=== PATIENT | female | born 1985 | race African-American/Black ===

== ENCOUNTER 2017-02-11 02:45 | Inpatient (IN) | payer OTHER ==
[2017-02-11] MEDS ORDERED: SODIUM CHLORIDE 500 ML IV SCH ×2 (03:05→04:05)
[2017-02-11] MEDS ORDERED: NIFEdipine 10 MG CAPSULE (FP) PO ONE (05:00)
[2017-02-11] MEDS: BETAMET ACET/BETAMET NA PH 30 MG/5 ML VIAL IM SCH (05:15)
[2017-02-11] MEDS: NIFEdipine 10 MG CAPSULE (FP) PO PRN ×2 (05:30→06:00)
[2017-02-11 05:31] LABS: URINE APPEARANCE CLEAR; URINE BILIRUBIN NEGATIVE (NEGATIVE); URINE BLOOD NEGATIVE (NEGATIVE); URINE COLOR YELLOW; URINE GLUCOSE (UA) NEGATIVE (NEGATIVE); URINE KETONE 2+ (NEGATIVE); URINE LEUK ESTERASE NEGATIVE (NEGATIVE); URINE NITRITE NEGATIVE (NEGATIVE); URINE UROBILINOGEN 2.0 E.U/dl E.U./dl (0.2-1.0)
[2017-02-11 05:34] LABS: URINE PROTEIN 1+ (NEGATIVE)
[2017-02-11 05:35] LABS: URINE MUCUS FEW; URINE RBC <1 /hpf (0-3); URINE WBC 5 /hpf (3-5)
[2017-02-11] MEDS ORDERED: AMPICILLIN - 100 ML IVPB ONE (06:15)
[2017-02-11 06:28] VITALS: BMI 34.0
--- NOTE | 2017-02-11 06:34 | HP ---
Past Medical History - Primary Care Physician PCP:: Earline Choudhary - Admission Chief Complaint: 31 yrs , 34.4 weeks previous c/section x3, GDM diet control, , presented with UC q3-7 min , c/o pain for 3days .. more intense since midnight . Response to IV hydration , followed by 3 doses of Procardia 10 mg q 30min , UC still q 6-7 min less intense but bothersome, hence she is admitted for MGSO4 therapy tocolysis & betamethasone.. she has h/o fall on 01/09 she was seen in L&D. no c/o bleeding or leaking or sexual contact .Drinking less po fluids History of Present Illness: care at [address] [place] [address] ..last visit was on 12/30/16 in the clinic . last Us on 02/03/17 with MFM was on 02/03/17 33.3 weeks, 64%tile growth (2255gm), Bpp8/8, AFI13.07, Vx, Post, placenta. . h/o NT screen neg, Modified Sequential neg .. h/o GDM , diet controlled . 1 hr GT 177, 3 hr GTT 96,189, 186, 178.. Quantiferon Pos, Chest Xray neg (01/02/17). Work Up : A Pos, Hbsag neg, Rpr nr, , Rubella pos, Varicella immune , Hgb AC , spouse HGB electrophoresiis wasnot done h/o anemia rx po iron & pnv h/o pap 09/04/16 ASCUS , HpV neg History Source: Patient, Medical Record Limitations to Obtaining History: No Limitations - Past Medical History FACILITIES DIRECTOR: No: Migraine, Seizure, Syncope Cardiovascular: No: HTN, Murmur Pulmonary: Yes: Other (c/o cold symptoms nasl congestion, other kids at home had). No: Asthma Gastrointestinal: Yes: Constipation Renal/: No: UTI ...: 7 ...Para: 3 ...Term: 3 ...: 0 ...Spon : 1 ...Induced : 2 ...Multiple Gestation: 0 ... Weeks Gestation by Dates: 34.4 (by sonogram.pt did not know LMP ) ...EDC by Sono: 03/21/17 (by 13.2 weeks sono isassigned edc) Additional OB History: 07/21/08 primary c/section 6'4" / 38 weeks distress [facility]. 09/09/10 repeat c/section 38 weeks 6'7' [facility]. 06/22/14 repeat c/ section 37.4 weeks 6'14" Heme/Onc: Yes: Anemia Infectious Disease: No: HIV, STD's Psych: No: Addictions, Anxiety, Bipolar, Depression Endocrine: Yes: Other (GDM diet controlled) - Past Surgical History Past Surgical History: Yes: (07/24, 08/25, 06/29) Hx Myomectomy: No Hx Transabdominal Cerclage: No - Smoking History Smoking history: Never smoked Have you smoked in the past 12 months: No Aproximately how many cigarettes per day: 0 - Alcohol/Substance Use Hx Alcohol Use: No History of Substance Use: reports: None Home Medications - Allergies Allergies/Adverse Reactions: Allergies Allergy/AdvReac Type Severity Reaction Status Date / Time No Known Allergies Allergy Verified 07/29/16 21:13 - Home Medications Home Medications: Ambulatory Orders Vitamins (Sjr) - 1 tab PO DAILY 01/09/17 Physical Exam - Maternity Vital Signs: Vital Signs Temperature 98.2 F 02/11/17 06:00 Pulse Rate 95 H 02/11/17 06:00 Respiratory Rate 22 02/11/17 06:00 Blood Pressure 114/69 02/11/17 06:00 O2 Sat by Pulse Oximetry (%) Constitutional: Yes: Well Nourished, Moderate Distress Eyes: Yes: WNL HENT: Yes: WNL, Normocephalic, Nasal Congestion. No: Pharyngeal Erythema Neck: Yes: WNL Cardiovascular: Yes: WNL, Regular Rate and Rhythm Lungs: Clear to auscultation Breast(s): Yes: WNL - Abdominal Exam/OB Fundal Height: 34 Number of Fetuses: Single Presentation: Vertex Contractions: Yes Regularity: Regular (6-7 min) Intensity: Mod/Strong Monitor Mode: External Heart Rate (range): 140-150 Heart Rate Location: [facility] Category: I Accelerations: Uniform Decelerations: None - Vaginal Exam/OB Vaginal Bleediing: No Speculum Exam: No Dilatation (cm): Ft Effacement (%): 50 Amniotic Membrane Status: Intact Presentation: Vertex/Position (cervix well applied on PP exam at 5.10 am & at 6.15am same findings) Station: -2 - Physical Exam Musculoskeletal: Yes: WNL Extremities: Yes: WNL. No: Calf Tenderness Edema: No Integumentary: Yes: Incision (old pfannensteil scar) Deep Tendon Reflex Grade: Normal +2 Psychiatric: Yes: WNL, Alert, Oriented - Labs Lab Results: Laboratory Tests 02/11/17 02/11/17 04:40 05:08 POC Glucometer 80 Urine pH 6.0 Urine Protein 1+ H Urine Glucose (UA) Negative Urine Ketones 2+ H Urine Blood Negative Urine Nitrite Negative Urine Bilirubin Negative Urine Urobilinogen 2.0 e.u/dl H Ur Leukocyte Esterase Negative Laboratory Tests 02/11/17 02/11/17 02/11/17 06:25 06:25 06:25 WBC 12.4 H D Hgb 11.8 Hct 33.7 Plt Count 239 Neutrophils % 75.1 D Lymphocytes % 16.7 D Monocytes % 7.1 INR 1.05 PTT (Actin FS) 28.5 Sodium Potassium Chloride Carbon Dioxide BUN Creatinine Random Glucose Calcium Total Bilirubin AST ALT Blood Type A POSITIVE 02/11/17 06:25 WBC Hgb Hct Plt Count Neutrophils % Lymphocytes % Monocytes % INR PTT (Actin FS) Sodium 140 Potassium 3.6 Chloride 108 H Carbon Dioxide 19 L D BUN 4 L D Creatinine 0.5 L D Random Glucose 71 L Calcium 8.7 Total Bilirubin 1.3 H D AST 16 ALT 15 D Blood Type Problem List - Problems (1) with 34 completed weeks gestation Code(s): Z3A.34 - 34 WEEKS GESTATION OF (2) labor Code(s): O60.00 - LABOR WITHOUT DELIVERY, UNSPECIFIED TRIMESTER Qualifiers: labor trimester: third trimester (3) Gestational diabetes, diet controlled Code(s): O24.410 - GESTATIONAL DIABETES MELLITUS IN , DIET CONTROLLED Qualifiers: Trimester: third trimester Qualified Code(s): O24.410 - Gestational diabetes mellitus in , diet controlled Assessment/Plan 31 yrs , 34.4 weeks, previous c/sx3, labor non responsive to iv hydration( N, saline ( 500 ml/hr f/b 250 ml /hr & Procardia therapy ( 10 mg po at 5.00am, 5.30 am, 6.00am ) Plan MGSO4 tccolysis( started at 6.30 am )loading dose 4 gm /hr f/b 2gm/hr until UC stops follow protocol betamethasone ( 12.5 mg im given at 5.15 am) , to be repeated after 24 hrs .. Iv Ampicillin prophylaxis for GBS DVT prophylaxix TEDs & SCD . if no response will do repeat c/sect pt requests for BTl, she signed the papers for BTL today
[2017-02-11] MEDS: MAGNESIUM 4GM/H20 - 100 ML IVPB SCH (06:45)
[2017-02-11] MEDS: MAGNESIUM SULFATE 20GM/500ML - 500 ML IVPB SCH ×2 (07:15→17:14)
[2017-02-11] MEDS: SODIUM CHLORIDE 1,000 ML IV SCH ×2 (07:15→17:14)
[2017-02-11 07:25] LABS: BASOPHIL 0.2 % (0-2.0); EOSINOPHIL 0.9 % (0-4.5); MCH 29.5 pg (25.7-33.7); MEAN CELL VOLUME 84.3 fl (80-96); NEUTROPHILS 75.1 % (42.8-82.8); PLATELET COUNT 239 K/MM3 (134-434); RDW 13.6 % (11.6-15.6); WHITE BLOOD COUNT 12.4 K/mm3 (4.0-10.0)
[2017-02-11 07:50] LABS: INR 1.05 (0.82-1.09); PROTHROMBIN TIME (PATIENT) 11.6 SEC (9.98-11.88)
[2017-02-11 07:52] LABS: ACTIVATED PTT 28.5 SECONDS (26.9-34.4)
[2017-02-11 08:04] LABS: ALBUMIN 2.6 g/dl (3.4-5.0); ANION GAP 13 (8-16); CALCIUM 8.7 mg/dL (8.5-10.1); CO2 19 mmol/L (21-32); CREATININE 0.5 mg/dL (0.55-1.02); GLUCOSE,RANDOM 71 mg/dL (74-106); SGOT/AST 16 U/L (15-37); SGPT/ALT 15 U/L (12-78)
[2017-02-11 08:05] LABS: ALK PHOS 123 U/L (45-117); BILIRUBIN,TOTAL 1.3 mg/dL (0.2-1.0); TOT PROT 6.8 g/dl (6.4-8.2)
[2017-02-11 09:49] LABS: HIV 1 & 2 AB NEGATIVE; HIV 1 AGp24 NEGATIVE
[2017-02-11] MEDS: AMPICILLIN - 100 ML IVPB SCH ×5 (10:00→22:50)
[2017-02-12] MEDS: SODIUM CHLORIDE 1,000 ML IV SCH (02:00)
--- NOTE | 2017-02-12 04:26 | PN ---
Progress Note (short form) - Note Progress Note: Pt on mgso4 for pt cx. Resting and not feeling ctx, level at a 4.7. Good u/o Cat 1 tracing
[2017-02-12] MEDS: BETAMET ACET/BETAMET NA PH 30 MG/5 ML VIAL IM SCH (05:50)
[2017-02-12] MEDS: AMPICILLIN - 100 ML IVPB SCH (06:00)
[2017-02-12] MEDS: MAGNESIUM SULFATE 20GM/500ML - 500 ML IVPB SCH (10:18)
[2017-02-12] MEDS: MAGNESIUM 4GM/H20 - 100 ML IVPB SCH (10:18)
[2017-02-12 10:24] VITALS: TEMP 98.1
--- NOTE | 2017-02-12 10:47 | PN ---
Ante-Partal Exam - Subjective Subjective: no c/o pain . Vital Signs: Vital Signs Temperature 98.1 F 02/12/17 10:00 Pulse Rate 94 H 02/12/17 10:00 Respiratory Rate 18 02/12/17 10:00 Blood Pressure 113/66 02/12/17 10:00 O2 Sat by Pulse Oximetry (%) Bleeding: No Headache: No Visual changes: No Right upper quadrant pain: No Pain (scale 1-10): 0 - Contractions Contractions: No Monitor Mode: External - Exam during Labor Heart Rate: 140 Variability: Moderate Heart Rate Location: [facility] Category: I Monitor Accelerations: Present Monitor Decelerations: None Exam: Vaginal (not done since she has no UC) Amniotic Membrane Status: Intact Presentation: Vertex - Assessment/Plan Assessment/Plan: pt is 34.5 weeks gestation ,s/p 3 C/Sections , PTL s/p [id number] for 24 hrs for tocolysis ., s/p Betamethasone 12.5 mg x2 doses s/p prophylactic Iv Ampicillin pt is pain free no UC for last 6 hrs,, except sometimes [place] [facility] UC. s/p GDM , BGM post breakfast 1 hr 150 mg ( pt ate breakfast from outside) .. 02/11/17 sono : 34.4/7 wks , byron 13.83cm, bpp 8/8, Vx, Post Placenta Plan d/c IVFluids, d/c IVAmpicillin discharge today pt counselled for diabetic diet, BGM Monitoring , plenty PO Fluids discharge today
[2017-02-12 11:07] VITALS: BP 115/68; PULSE 89
--- NOTE | 2017-02-12 11:15 | DS ---
Physical Exam-CERTIFIED ORTHOPTIST Vital Signs: Vital Signs Temperature 98.1 F 02/12/17 10:00 Pulse Rate 94 H 02/12/17 10:00 Respiratory Rate 18 02/12/17 10:00 Blood Pressure 113/66 02/12/17 10:00 O2 Sat by Pulse Oximetry (%) Constitutional: Yes: Well Nourished, No Distress Eyes: Yes: WNL HENT: Yes: WNL, Nasal Congestion Neck: Yes: WNL Cardiovascular: Yes: WNL Respiratory: Yes: WNL Gastrointestinal: Yes: WNL Renal/: Yes: WNL External Genitalia: Yes: Normal Breast(s): Yes: WNL Extremities: Yes: WNL. No: Calf Tenderness Edema: No Integumentary: Yes: Incision (old pfannensteil scar) Neurological: Yes: WNL, Alert, Oriented ...Motor Strength: WNL Psychiatric: Yes: WNL Labs: CBC, BMP 02/11/17 06:25 02/11/17 06:25 Delivery, Single - [place] Feeding Plan Initial Plan: Elected not to breastfeed exclusively throughout hospitalization Remarks - Remarks Remarks: 31 yrs , 40.4 weeks, , previous c/setion x3 , GDM diet controlled admitted on 02/11/17 & discharged on 02/12/17 . pt was given as an outpatient, iv hydration, followed by 3 doses of procardia 10 mg q 30 mn, uc were persistent 7 strong hence she was admitted Placed on MgSO4 4 gm loading dose followed by 2 gm/hr for 12 hr followed by 1gm/hr x12 hrs , . She responded well to MgSO4 therapy tocolysis. GDM was monitored by BGM, & [address] ADA Iv Ampicillin prophylactic was given. She was given betamethasone IM x 2 dose was given . she is discharged on 02/12/17 in stable condition, with instructions. Discharge Summary Reason For Visit: ADMIT-PRE TERM LABOR Current Active Problems Gestational diabetes, diet controlled (Acute) with 34 completed weeks gestation (Acute) labor (Acute) Condition: Stable - Instructions Diet, Activity, Other Instructions: take rest at home plenty , 8-10 glasses of water take diabetic diet as recommended by teacher asst check BGM 4 times as instructed , fasting & 2 Hrs after breakfast, lunch & dinner . continue your vit & Iron pills keep pnc appointment on 02/17/17 Referrals: Earline Choudhary MD [Staff Physician] - Disposition: HOME - Home Medications Comprehensive Discharge Medication List: Ambulatory Orders Vitamins (Sjr) - 1 tab PO DAILY 01/09/17
== END 2017-02-12 11:44 | disposition home or self-care (01) | DRG 563 ==
LOC: JDEL 02:45 → JLDR 06:00
PROVIDERS: ADMIT Obstetrics & Gynecology; ATTEND Obstetrics & Gynecology
PROC: 3E033GC Introduction of Other Therapeutic Substance into Peripheral Vein, Percutaneous Approach (ICD-10-PCS; principal; 2017-02-11)
DX: O60.03 Preterm labor without delivery, third trimester (principal); O24.420 Gestational diabetes mellitus in childbirth, diet controlled; Z3A.34 34 weeks gestation of pregnancy
CPT/HCPCS: 36415; 80053; 81003; 81015; 83735; 85025; 85610; 85730; 86593; 86850; 86900; 86901; 87086; 87389; 96372

== ENCOUNTER 2017-03-01 18:10 | Inpatient (IN) | payer OTHER ==
[~2017-03-01 18:10] MED LIST: LACTATED RINGERS SOLUTION 500 ML IV ONE
[2017-03-01] MEDS ORDERED: LACTATED RINGERS SOLUTION 1,000 ML IV SCH (19:10)
[2017-03-01] MEDS ORDERED: ELECTROLYTE-148 SOLN 500 ML IV ONE ×3 (22:15→23:43)
[2017-03-01] MEDS ORDERED: CITRIC ACID/SODIUM CITRATE 30 ML UNIT-DOSE CUP PO ONE ×2 (22:30→23:43)
[2017-03-01 22:39] LABS: BASOPHIL 0.2 % (0-2.0); MCH 30.5 pg (25.7-33.7); MCHC 35.9 g/dl (32.0-36.0); MEAN CELL VOLUME 84.9 fl (80-96); MEAN PLT VOLUME 7.6 fl (7.5-11.1); NEUTROPHILS 68.3 % (42.8-82.8); PLATELET COUNT 254 K/MM3 (134-434); RDW 14.2 % (11.6-15.6); WHITE BLOOD COUNT 9.5 K/mm3 (4.0-10.0)
[2017-03-01 22:50] LABS: INR 1.01 (0.82-1.09); PROTHROMBIN TIME (PATIENT) 11.1 SEC (9.98-11.88)
[2017-03-01 22:53] LABS: ACTIVATED PTT 27.2 SECONDS (26.9-34.4)
[2017-03-01 23:01] VITALS: BMI 34.0
[2017-03-01 23:11] LABS: CALCIUM 8.2 mg/dL (8.5-10.1); COCKROFT - GAULT 156.5105; CREATININE 0.7 mg/dL (0.55-1.02)
[2017-03-01] MEDS ORDERED: ONDANSETRON 4 MG/2 ML VIAL IVPB PRN (23:36)
[2017-03-01] MEDS ORDERED: METHYLERGONOVINE MALEATE 0.2 MG/1 ML AMP IM PRN (23:43)
[2017-03-01] MEDS ORDERED: IBUPROFEN 600 MG TABLET (FP) PO PRN (23:43)
[2017-03-01] MEDS ORDERED: ELECTROLYTE-148 SOLN 1,000 ML IV SCH (23:45)
[2017-03-02] MEDS: OXYTOCIN 20 UNITS in 0.9% NS 1,000 ML IV SCH ×2 (03:00→13:30)
[2017-03-02] MEDS: IBUPROFEN 800 MG/8 ML IJ IVPB PRN ×2 (03:00→09:03)
[2017-03-02 08:19] LABS: BASOPHIL 0.3 % (0-2.0); EOSINOPHIL 0.8 % (0-4.5); MCH 29.4 pg (25.7-33.7); MEAN CELL VOLUME 86.4 fl (80-96); MEAN PLT VOLUME 7.9 fl (7.5-11.1); NEUTROPHILS 70.4 % (42.8-82.8); PLATELET COUNT 183 K/MM3 (134-434); RDW 14.1 % (11.6-15.6); WHITE BLOOD COUNT 10.3 K/mm3 (4.0-10.0)
--- NOTE | 2017-03-02 08:32 | PN ---
Progress Note (short form) - Note Progress Note: Anesthesia POD#1 S/P Repeat under spinal Patient sitting in the bed having break fast. No N/V, no pain,moving extremities well. A/P No complications to anesthesia seen. Duyen Trent MD.
[2017-03-02] MEDS: IBUPROFEN 600 MG TABLET (FP) PO PRN (19:41)
[2017-03-02] MEDS: SIMETHICONE 80 MG TAB.CHEW (FP) PO PRN (19:41)
[2017-03-02] MEDS: ACETAMINOPHEN 325 MG TABLET (FP) PO PRN (19:41)
[2017-03-02] MEDS ORDERED: BISACODYL 10 MG SUPP.RECT RC PRN (23:43)
[2017-03-03] MEDS: ACETAMINOPHEN 325 MG TABLET (FP) PO PRN ×3 (04:52→20:22)
[2017-03-03] MEDS: IBUPROFEN 600 MG TABLET (FP) PO PRN ×3 (04:53→20:23)
[2017-03-03] MEDS: SIMETHICONE 80 MG TAB.CHEW (FP) PO PRN ×3 (04:53→20:22)
--- NOTE | 2017-03-03 12:53 | PN ---
Progress Note (short form) - Note Progress Note: s/p repeat c/s doing well, no c/o voids ok, no excess vaginal bleeding CBC, BMP 03/02/17 06:00 03/01/17 22:15 Last Vital Signs Temp Pulse Resp BP Pulse Ox 98.3 F 85 20 95/66 98 03/03/17 07:30 03/03/17 07:30 03/03/17 07:30 03/03/17 07:30 03/02/17 02:15 abdomen soft, no distension, no cva incision dry, clean no calf tenderness impression doing well, pod1 ambulate, pain management advance diet
[2017-03-04] MEDS: ACETAMINOPHEN 325 MG TABLET (FP) PO PRN ×3 (02:57→21:31)
[2017-03-04] MEDS: SIMETHICONE 80 MG TAB.CHEW (FP) PO PRN ×3 (02:57→21:31)
[2017-03-04] MEDS: IBUPROFEN 600 MG TABLET (FP) PO PRN ×3 (02:58→21:31)
--- NOTE | 2017-03-04 08:41 | PN ---
Post Progress Note - Subjective Subjective: c/o pain variable 0-10 . voiding without difficulty Post Day: 2 Type of Delivery: Repeat C/S Vital Signs: Vital Signs Temperature 98.9 F 03/03/17 21:29 Pulse Rate 99 H 03/03/17 21:29 Respiratory Rate 20 03/03/17 21:29 Blood Pressure 116/68 03/03/17 21:29 O2 Sat by Pulse Oximetry (%) 98 03/02/17 02:15 Breast Exam: Yes: Soft. No: Engorged Uterus: Yes: Fundus Firm, Fundus below umbilicus, Non-tender Incision: Yes: [place] intact. No: Redness, Oozing Abdomen/GI: Yes: Abdomen soft, Passing flatus, Tolerating PO (diet). No: Abdominal Distention, Tender Lochia: Yes: Rubra Lochia, amount: Moderate Extremities: Yes: Calves non-tender Perineum: Yes: Intact Activity: Ambulating - Labs Labs: CBC WBC 10.3 K/mm3 (4.0-10.0) H 03/02/17 06:00 RBC 3.06 M/mm3 (3.60-5.2) L D 03/02/17 06:00 Hgb 9.0 GM/dL (10.7-15.3) L D 03/02/17 06:00 Hct 26.4 % (32.4-45.2) L D 03/02/17 06:00 MCV 86.4 fl (80-96) 03/02/17 06:00 MCHC 34.0 g/dl (32.0-36.0) 03/02/17 06:00 RDW 14.1 % (11.6-15.6) 03/02/17 06:00 Plt Count 183 K/MM3 (134-434) D 03/02/17 06:00 MPV 7.9 fl (7.5-11.1) 03/02/17 06:00 Neutrophils % 70.4 % (42.8-82.8) 03/02/17 06:00 Lymphocytes % 20.6 % (8-40) 03/02/17 06:00 Monocytes % 7.9 % (3.8-10.2) 03/02/17 06:00 Eosinophils % 0.8 % (0-4.5) 03/02/17 06:00 Basophils % 0.3 % (0-2.0) 03/02/17 06:00 Assessment/Plan post op anemia , stable plan ct po care
[2017-03-04 08:48] LABS: BASOPHIL 0.2 % (0-2.0); EOSINOPHIL 3.3 % (0-4.5); MCH 30.4 pg (25.7-33.7); MCHC 35.2 g/dl (32.0-36.0); MEAN CELL VOLUME 86.1 fl (80-96); MEAN PLT VOLUME 7.7 fl (7.5-11.1); NEUTROPHILS 62.4 % (42.8-82.8); PLATELET COUNT 194 K/MM3 (134-434); RDW 14.5 % (11.6-15.6); WHITE BLOOD COUNT 9.9 K/mm3 (4.0-10.0)
--- NOTE | 2017-03-05 06:31 | PN ---
Post Progress Note Post Day: 3 Type of Delivery: Repeat C/S Vital Signs: Vital Signs Temperature 98.9 F 03/04/17 22:00 Pulse Rate 98 H 03/04/17 22:00 Respiratory Rate 18 03/04/17 22:00 Blood Pressure 108/73 03/04/17 22:00 O2 Sat by Pulse Oximetry (%) 98 03/02/17 02:15 Breast Exam: Yes: Soft Uterus: Yes: Fundus Firm Incision: Yes: [place]til[place] intact Abdomen/GI: Yes: Abdomen soft Lochia: Yes: Rubra Lochia, amount: Small Extremities: Yes: Calves non-tender Perineum: Yes: Intact Activity: Ambulating - Labs Labs: CBC WBC 9.9 K/mm3 (4.0-10.0) 03/04/17 07:45 RBC 2.88 M/mm3 (3.60-5.2) L 03/04/17 07:45 Hgb 8.7 GM/dL (10.7-15.3) L 03/04/17 07:45 Hct 24.8 % (32.4-45.2) L 03/04/17 07:45 MCV 86.1 fl (80-96) 03/04/17 07:45 MCHC 35.2 g/dl (32.0-36.0) 03/04/17 07:45 RDW 14.5 % (11.6-15.6) 03/04/17 07:45 Plt Count 194 K/MM3 (134-434) 03/04/17 07:45 MPV 7.7 fl (7.5-11.1) 03/04/17 07:45 Neutrophils % 62.4 % (42.8-82.8) 03/04/17 07:45 Lymphocytes % 25.5 % (8-40) D 03/04/17 07:45 Monocytes % 8.6 % (3.8-10.2) 03/04/17 07:45 Eosinophils % 3.3 % (0-4.5) D 03/04/17 07:45 Basophils % 0.2 % (0-2.0) 03/04/17 07:45 Assessment/Plan oob dc home today
[2017-03-05] MEDS: SIMETHICONE 80 MG TAB.CHEW (FP) PO PRN (07:38)
[2017-03-05] MEDS: ACETAMINOPHEN 325 MG TABLET (FP) PO PRN (07:38)
[2017-03-05] MEDS: IBUPROFEN 600 MG TABLET (FP) PO PRN (07:39)
[2017-03-05 08:42] VITALS: BP 117/70; PULSE 100; TEMP 98.5
--- NOTE | 2017-03-05 09:37 | OP ---
DATE OF OPERATION: PREOPERATIVE DIAGNOSIS: A 31-year-old female at 37+ weeks with prior section who comes in in labor for repeat section. POSTOPERATIVE DIAGNOSIS: A 31-year-old female at 37+ weeks with prior section who comes in in labor for repeat section. PROCEDURE: A repeat section. OPERATING SURGEON: Roshan Francis MD KENNEL ASSISTANT: Christian Scanlon MD COMPLICATIONS: None. ANESTHESIA: Spinal anesthesia DISPOSITION: To recovery room in stable, alert condition. DESCRIPTION OF PROCEDURE: The patient was consented prior to entering the operating suite. Part of the consent was tubal ligation, the patient had signed for. On the operating room table, the patient after proper anesthesia was tested. There was no pain detected. Transverse incision on the lower abdomen Pfannenstiel type was carried down to the level of the fascia. The fascia was then transected to the left and right of midline. The fascia was then teased away from the underlying rectus abdominis muscle. There was noted to be somewhat separation of the diastasis rectus muscle. This was then to gain entry into the uterus. The uterus was then identified. Bladder flap was created, although there was scar tissue. Transverse incision was made. The infant head was at the opening. Vacuum assistance was then performed. Slight fundal pressure helped the infant be delivered. The was then clamped and cut, and the was then handed off to awaiting remote sensing program manager. At this time, the placenta had been removed, and the inferior aspect of the uterus was cleaned with a semiwet lap pad. The uterine incision was then closed in Biosyn suture. There were noted to be adhesions in the right and left pericolic gutters adnexal area. Tubal ligation was not performed. After closing of the muscle with the peritoneum with Biosyn suture, the fascia was then closed with Biosyn suture. Skin sherry were applied. The patient was sent to the recovery room in stable, alert condition. ROSHAN FRANCIS M.D. BRYAN/[id number]
--- NOTE | 2017-03-05 11:49 | PATH ---
Surgical Pathology Report Patient Name: BELEM CELESTIN Med. Rec. #: [id number] /Age/Gender: 1985 (Age: 31) / F Account: [id number] Location: [facility] OBS/SENIOR UNDERWRITER Taken: 03/02/2017 Received: 03/02/2017 Reported: 03/05/2017 Physicians: Hakeem Francis M.D. Specimen(s) Received PLACENTA Clinical History , 37 weeks gestation 3 previous C-sections Gestational diabetic-diet controlled History of asthma Final Diagnosis PLACENTA, DELIVERY: SMALL (360 GRAM) FOCALLY DISRUPTED THIRD TRIMESTER PLACENTA WITH INFARCT, 3 VESSEL UMBILICAL CORD, AND UNREMARKABLE PLACENTAL MEMBRANE. Electronically Signed Stalin Fregoso M.D. Gross Description The specimen is received fresh labeled placenta and is a 360 gram, 16.5 x 13.5 x 2.3 cm. placenta with attached membranes and umbilical cord. The attached membranes are wade, thick, cloudy and insert marginally. The umbilical cord measures 47 cm. in length and averages 1.3 cm. in diameter. The cord inserts at the margin. No true knots or strictures are identified. Cut surface of the umbilical cord reveals 3 vessels. The surface is olvera-blue with minimal fibrin deposition and appropriate caliber vessels. The maternal surface is red-brown with focal defects. Sectioning reveals a 1.8 cm in greatest dimension wade intraparenchymal lesion. The remaining placental parenchyma is red-brown and spongy. Studio Manager sections are submitted in 4 cassettes as follows: 1-membrane rolls and umbilical cord; 2-lesion; 3-4-full thickness sections of placenta. 03/04/2017 [facility]03/04/2017
--- NOTE | 2017-03-16 11:24 | OP ---
DATE OF OPERATION: HISTORY: A 31-year-old female with prior section in labor for repeat section. OPERATING SURGEON: Roshan Francis MD COMPUTER COMPOSITOR: Christian Scanlon MD COMPLICATIONS: None. FINDINGS: Single, live male infant with Apgars 8/9. Normal tubes, ovaries, placenta. DESCRIPTION OF PROCEDURE: The patient was consented prior to entering the operating suite. The patient was put on the table in dorsal supine position, prepped and draped in the usual sterile fashion. A Pfannenstiel skin incision was carried down to the level of the fascia. The fascia was then transected to the left and right of midline. The muscle was then split digitally in the midline after separation of the fascial tissue. A small area of adhesions was then noted. Enough space was made to gain entry into the uterus. Transverse incision was made, and the infant was then delivered atraumatically through the incision. Tubal ligation was not performed secondary to adhesions. At this time, the placenta had been removed. The port was then clamped and culture. The inferior aspect of the uterus was cleaned with semiwet lap pad. At this time, the uterus was closed with a Biosyn suture. The peritoneum with the muscles was then approximated. The fascia was then closed with Biosyn suture. Skin sherry were applied. The patient was sent to the recovery room in stable, alert condition. ROSHAN FRANCIS M.D. [id number]
--- NOTE | 2017-04-28 12:18 | DS ---
DATE OF ADMISSION: DATE OF DISCHARGE: DATE OF DICTATION: 04/21/2017 The patient was seen throughout hospital course post section. No issues or concerns. The patient will be followed up in the office in 2 weeks' time. ROSHAN SIMMONS M.D. BRYAN/[id number]
== END 2017-03-05 11:00 | disposition home or self-care (01) | DRG 540 ==
LOC: JDEL 18:10 → JLDR 22:10 → J3W 03-02 04:03
PROVIDERS: ADMIT Obstetrics & Gynecology; ATTEND Obstetrics & Gynecology
PROC: 10D00Z1 Extraction of Products of Conception, Low, Open Approach (ICD-10-PCS; principal; 2017-03-02)
DX: O34.211 Maternal care for low transverse scar from previous cesarean delivery (principal); N85.8 Other specified noninflammatory disorders of uterus; O99.02 Anemia complicating childbirth; Z3A.37 37 weeks gestation of pregnancy; O24.410 Gestational diabetes mellitus in pregnancy, diet controlled; Z37.0 Single live birth
CPT/HCPCS: 36415; 80048; 85025; 85610; 85730; 86593; 86850; 86900; 86901; 88307-TC

== ENCOUNTER 2017-09-17 22:58 | Emergency (ER) | payer OTHER ==
[2017-09-17 23:10] VITALS: BP 128/82; PULSE 77; TEMP 97.9; BMI 33.8
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
[2017-09-17] MEDS ORDERED: KETOROLAC TROMETHAMINE 10 MG TABLET PO ONE (23:56)
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
[2017-09-18] MEDS ORDERED: KETOROLAC TROMETHAMINE 30 MG/1 ML VIAL IM ONE (01:52)
[2017-09-18] MEDS ORDERED: KETOROLAC TROMETHAMINE 30 MG/1 ML VIAL ONE (02:39)
== END 2017-09-18 03:56 | disposition home or self-care (01) ==
LOC: SUPCPDRO 22:58 → JER 22:58
PROC: 3E0233Z Introduction of Anti-inflammatory into Muscle, Percutaneous Approach (ICD-10-PCS; principal; 2017-09-17)
DX: S13.4XXA Sprain of ligaments of cervical spine, initial encounter (principal); R07.81 Pleurodynia; V49.59XA Passenger injured in collision with other motor vehicles in traffic accident, initial encounter; Y92.414 Local residential or business street as the place of occurrence of the external cause; Y93.89 Activity, other specified; Y99.8 Other external cause status
CPT/HCPCS: 71111-TC; 84703; 99282-25

== ENCOUNTER 2018-12-13 07:34 | Emergency (ER) | payer OTHER ==
[2018-12-13 07:42] VITALS: BP 131/77; PULSE 80; TEMP 98.2; BMI 29.2
[2018-12-13] MEDS ORDERED: CYCLOBENZAPRINE HCL 10 MG TABLET (FP) PO ONE (08:23)
[2018-12-13] MEDS ORDERED: IBUPROFEN 400 MG TABLET (FP) PO ONE ×2 (08:23→08:27)
[2018-12-13] MEDS ORDERED: CYCLOBENZAPRINE HCL 10 MG TABLET (FP) ONE (08:27)
--- NOTE | 2018-12-13 08:29 | PDOC ---
History of Present Illness - General Chief Complaint: Headache Stated Complaint: HEADACHE Time Seen by Provider: 12/13/18 08:03 History Source: Patient Exam Limitations: No Limitations - History of Present Illness Initial Comments: 12/13/18 08:30 Patient is a 33-year-old female with no past medical history who presents to the emergency department today for intermittent headache for one month. Patient states that she notices the pain goes all around her head and feels tight. She states that she notices the pain goes to the sides of her neck. Also admits to occasional photophobia. She states that the headache comes and goes and gradually gets worse over the course of the day. She tried taking Motrin 400 mg with minimal relief of her symptoms. Denies fevers, chills, loss of consciousness, lightheadedness, dizziness, gait instability, nausea, vomiting. Past History - Travel Traveled outside of the country in the last 30 days: No Close contact w/someone who was outside of country & ill: No - Past Medical History Allergies/Adverse Reactions: Allergies Allergy/AdvReac Type Severity Reaction Status Date / Time No Known Allergies Allergy Verified 12/13/18 07:38 Home Medications: Ambulatory Orders Cyclobenzaprine HCl [Flexeril -] 10 mg PO HS #10 tablet 12/13/18 Ibuprofen 800 mg PO TID #30 tablet 12/13/18 Ibuprofen [Advil -] mg PO QID PRN 12/13/18 Asthma: Yes Cancer: No Cardiac Disorders: No COPD: No Diabetes: Yes HTN: No Seizures: No Thyroid Disease: No - Surgical History Cholecystectomy: Yes - Immunization History Immunization Up to Date: Yes - Suicide/Smoking/Psychosocial Hx Smoking History: Never smoked Have you smoked in the past 12 months: No Number of Cigarettes Smoked Daily: 0 Cigars Per Day: 0 Hx Alcohol Use: No Drug/Substance Use Hx: No Substance Use Type: None Hx Substance Use Treatment: No Review of Systems - Review of Systems Able to Perform ROS?: Yes Comments:: 12/13/18 08:26 CONSTITUTIONAL: Absent: fever, chills, diaphoresis, generalized weakness, malaise, loss of appetite HEENT: Absent: rhinorrhea, nasal congestion, throat pain, throat swelling, difficulty swallowing, mouth swelling, ear pain, eye pain, visual Changes CARDIOVASCULAR: Absent: chest pain, loss of consciousness, palpitations, irregular heart rate, peripheral edema RESPIRATORY: Absent: cough, shortness of breath, dyspnea with exertion, orthopnea, wheezing, stridor, hemoptysis GASTROINTESTINAL: Absent: abdominal pain, abdominal distension, nausea, vomiting, diarrhea, constipation, melena, hematochezia GENITOURINARY: Absent: dysuria, frequency, urgency, hesitancy, hematuria, flank pain, genital pain MUSCULOSKELETAL: Absent: myalgia, arthralgia, joint swelling SKIN: Absent: rash, itching, pallor HEMATOLOGIC/IMMUNOLOGIC: Absent: easy bleeding, easy bruising, lymphadenopathy, frequent infections ENDOCRINE: Absent: unexplained weight gain, unexplained weight loss, heat intolerance, cold intolerance NEUROLOGIC: Present: headache Absent: focal weakness or paresthesias, dizziness, unsteady gait, seizure, mental status changes, bladder or bowel incontinence PSYCHIATRIC: Absent: anxiety, depression, suicidal or homicidal ideation, hallucinations. Is the patient limited Beninese proficient: No *Physical Exam - Vital Signs Last Vital Signs Temp Pulse Resp BP Pulse Ox 98.2 F 80 17 131/77 98 12/13/18 07:41 12/13/18 07:41 12/13/18 07:41 12/13/18 07:41 12/13/18 07:41 - Physical Exam Comments: 12/13/18 08:27 GENERAL: Well developed, well nourished. Awake and alert. No acute distress. HEENT: Normocephalic, atraumatic. PERRLA, EOMI. No conjunctival pallor. Sclera are non- icteric. Moist mucous membranes. Oropharynx is clear. NECK: Supple. Full ROM. TTP of the paraspinous muscles of the neck b/l. No JVD. Carotid pulses 2+ and symmetric, without bruits. No thyromegaly. No lymphadenopathy. Negative Brudinzki and kernig signs. CARDIOVASCULAR: Regular rate and rhythm. No murmurs, rubs, or gallops. Distal pulses are 2+ and symmetric. PULMONARY: No evidence of respiratory distress. Lungs clear to auscultation bilaterally. No wheezing, rales or rhonchi. ABDOMINAL: Soft. Non-tender. Non-distended. No rebound or guarding. No organomegaly. Normoactive bowel sounds. MUSCULOSKELETAL Normal range of motion at all joints. No bony deformities or tenderness. No CVA tenderness. EXTREMITIES: No cyanosis. No clubbing. No edema. No calf tenderness. SKIN: Warm and dry. Normal capillary refill. No rashes. No jaundice. NEUROLOGICAL: Alert, awake, appropriate. Cranial nerves 2-12 intact. No deficits to light touch and temperature in face, upper extremities and lower extremities. No motor deficits in the in face, upper extremities and lower extremities. Normoreflexic in the upper and lower extremities. Normal speech. Toes are down- going bilaterally. Gait is normal without ataxia. No dysdyacochokinesia. PSYCHIATRIC: Cooperative. Good eye contact. Appropriate mood and affect. Moderate Sedation - Procedure Monitoring Vital Signs: Procedure Monitoring Vital Signs Temperature 98.2 F 12/13/18 07:41 Pulse Rate 80 12/13/18 07:41 Respiratory Rate 17 12/13/18 07:41 Blood Pressure 131/77 12/13/18 07:41 O2 Sat by Pulse Oximetry (%) 98 12/13/18 07:41 Medical Decision Making - Medical Decision Making 12/13/18 08:40 Patient is a 33-year-old female who presents with 1 month of intermittent headache symptoms. On exam neurologically intact, no gross neurological deficits. negative Brudzinski and Kernig signs. Tenderness to palpation of the paraspinous muscles of the neck bilaterally. VSS, afrebrile. Symptoms are intermittent over the past month and gradually get worse. No red flags in history or physical concerning for subarachnoid hemorrhage at this time. Most likely a tension headache. We'll treat with ibuprofen and Flexeril. Primary care neurology follow-up given. Discharge home I discussed the physical exam findings, ancillary test results and final diagnoses with the patient. I answered all of the patient's questions. The patient was satisfied with the care received and felt comfortable with the discharge plan and treatment plan. The Patient agrees to follow up with the primary care physician/specialist within 24-72 hours. Return precautions were given. *DC/Admit/Observation/Transfer Diagnosis at time of Disposition: Headache Qualifiers: Headache type: tension-type Headache chronicity pattern: acute headache Intractability: not intractable Qualified Code(s): G44.209 - Tension-type headache, unspecified, not intractable - Discharge Dispostion Disposition: HOME Condition at time of disposition: Stable Decision to Admit order: No - Prescriptions Prescriptions: Cyclobenzaprine HCl [Flexeril -] 10 mg PO HS #10 tablet Ibuprofen 800 mg PO TID #30 tablet - Referrals Referrals: Kirt Burris MD [Staff Physician] - Danilo Crabtree DO [Staff Physician] - - Patient Instructions Printed Discharge Instructions: DI for Headache Additional Instructions: You have a headache. Please take Motrin 800 mg every 8 hours for your headache. Do not take more than 3000 mg a day. You may take the Flexeril every 8 hours today. Tomorrow take the Flexeril only at night before bed. Do not drink alcohol or drive after taking this medication as it may make you sleepy. He may do gentle stretching exercises of the neck to help with the pain. A heating pad may help with her pain is well. Please follow up with your primary care doctor. If you try have a referral has been provided. Return to the ER for worsening headache, fever, lightheadedness, loss of consciousness, or if you have any changes in your symptoms. - Post Discharge Activity Forms/Work/School Notes: Back to Work
== END 2018-12-13 08:41 | disposition home or self-care (01) ==
LOC: JERFT 07:34
DX: G44.209 Tension-type headache, unspecified, not intractable (principal)
CPT/HCPCS: 99281-25

== ENCOUNTER 2019-11-26 23:24 | Emergency (ER) | payer OTHER ==
[2019-11-26 23:52] VITALS: BP 126/85; PULSE 79; TEMP 98
--- NOTE | 2019-11-27 01:24 | PDOC ---
Attending Attestation - Resident Resident Name: Torrey Shah - ED Attending Attestation I have performed the following: I have examined & evaluated the patient, The case was reviewed & discussed with the resident, I agree w/resident's findings & plan - HPI HPI: 11/27/19 02:53 Pt comes with back pain. Point tenderness at a paraspinal location that radiates up and down the paraspinal muscles. She states that her sometimes massages her knot. She takes nothing for the pain. 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 She has no dysuria and no rashes and no N/V/D and no fever. She has no other complaints. Pt has no neurologic deficits. - Physicial Exam PE: 11/27/19 02:56 Normal exam. Pt is afebrile She has a stiff back and spasm. She has pain when trying to sit forward in the stretcher. Pt has an obese abdomen. Pt has normal heart and lungs and no flank pain. She has normal neuro exam - Medical Decision Making 11/27/19 03:01 Pt has normal labs; she has no anemia Pt will get a T spine XRAY 11/27/19 04:04 Pt has loss of lumbar lordosis. 11/27/19 04:04 Consistent with muscle spasm. Pt will be discharged
[2019-11-27] MEDS ORDERED: LIDOCAINE 5% TOPICAL PATCH TP ONE (01:34)
[2019-11-27] MEDS ORDERED: ACETAMINOPHEN 325 MG TABLET (FP) PO ONE (01:34)
[2019-11-27 01:35] VITALS: BMI 34.0
[2019-11-27] MEDS ORDERED: ACETAMINOPHEN 325 MG TABLET (FP) ONE (01:35)
--- NOTE | 2019-11-27 01:35 | PDOC ---
History of Present Illness - General Chief Complaint: Back Pain Stated Complaint: BACK PAIN Time Seen by Provider: 11/27/19 01:12 History Source: Patient, Family (Daughter at bedside) Exam Limitations: No Limitations - History of Present Illness Initial Comments: HPI: 34 y/o female presenting to [facility] ER complaining of right lower back pain that started before Ovidio. Pain started to worsen over the past two days. It is made worse with any movement of the back. Manageable if she stays still. Denies trauma to the area, recent heavy lifting, fevers, chills, dysuria, hematuria, or increased urinary frequency. Denies urinary retention, bowel incontinence, saddle anesthesia, or weakness in legs. Has attempted relief with direct massage and Tylenol PM. No OTC medications used during the day. 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 Denies prescription medications. Surgical Hx: - Review of Systems: In addition to that documented in the HPI above, the additional ROS was obtained : Constitutional- Denies fevers or chills ENMT- Denies sore throat CV- Denies chest pain Resp- Denies SOB GI- Denies abdominal pain, vomiting or diarrhea - Denies dysuria, hematuria, or urinary frequency Physical Examination: Vital signs and nursing notes reviewed. Constitutional- Well-developed, well-nourished adult female in no acute distress but mild obvious discomfort. Found semi-fowlers on hospital bed. Answered all questions appropriately and completely. Head- Normocephalic. No obvious external signs of trauma. Neck- Supple, trachea is midline. Cardiovascular / Chest- Regular rate and regular rhythm. No murmur, rubs, clicks , or gallops. Peripheral pulses- radial pulses full. No pretibial edema. Respiratory- Breathing unlabored. Equal chest rise and fall. Clear to auscultation bilaterally. No stridor, no wheezing, no rhonchi. Gastrointestinal- abdomen is soft, non-tender, non-distended. Neuro- Alert and oriented x4. Moving all four extremities spontaneously. No facial asymmetry. No slurred speech. Sensation to all four extremities intact. Lower extremity: proximal and distal strength 5/5. Plantar flexion and dorsiflexion 5/5. No nuchal rigidity. MSK- Diffuse right sided paraspinal tenderness. No overlying skin changes. No signs of trauma. No midline thoracic or lumbar spinal tenderness. No step off. Skin- Warm, dry, and intact. - No R or L CVA tenderness. Psych- Affect- appropriate. Mood- normal. Speech was non-labored, non- pressured. MDM: 34 y/o female presenting with atraumatic right lower back pain without sciatica. Afebrile. Vitals unremarkable for hypotension or tachycardia. Physical exam as described above. No red flags identified on history or physical for Cauda Equina. Suspect MSK strain. Will obtain UA to eval for pyelonephritis (extremely low suspicion), UPreg, CBC, and BMP. Ordered Acetaminophen and Lidoderm patch for symptom relief. Reviewed laboratory data. No clinically significant derangement. UPreg negative. Continue to suspect MSK strain. Will D/C the pt with topical NSAID and Robaxin. Discussed laboratory results with pt. Answered all questions. Provided return precautions. pt expressed verbal understanding and agreement with plan to discharge home with outpatient follow up. Provided copies of todays results. Torrey Shah M.D., PGY2 Emergency Medicine Resident Past History - Past Medical History Allergies/Adverse Reactions: Allergies Allergy/AdvReac Type Severity Reaction Status Date / Time No Known Allergies Allergy Verified 11/27/19 01:04 Home Medications: Ambulatory Orders Cyclobenzaprine HCl [Flexeril -] 10 mg PO HS #10 tablet 12/13/18 Ibuprofen 800 mg PO TID #30 tablet 12/13/18 Ibuprofen [Advil -] mg PO QID PRN 12/13/18 Diclofenac Sodium [Diclofono] 2.5 gm TP BID PRN #1 gel.packet 11/27/19 Methocarbamol [Robaxin -] 500 mg PO BID #14 tablet 11/27/19 Asthma: Yes Cancer: No Cardiac Disorders: No COPD: No Diabetes: Yes HTN: No Seizures: No Thyroid Disease: No - Surgical History Cholecystectomy: Yes - Immunization History Immunization Up to Date: Yes - Psycho Social/Smoking Cessation Hx Smoking History: Never smoked Have you smoked in the past 12 months: No Number of Cigarettes Smoked Daily: 0 Cigars Per Day: 0 Hx Alcohol Use: No Drug/Substance Use Hx: No Substance Use Type: None Hx Substance Use Treatment: No *Physical Exam - Vital Signs Last Vital Signs Temp Pulse Resp BP Pulse Ox 98.0 F 79 18 126/85 99 11/27/19 01:04 11/27/19 01:04 11/27/19 01:04 11/27/19 01:04 11/27/19 01:04 ED Treatment Course - LABORATORY CBC & Chemistry Diagram: 11/27/19 02:04 11/27/19 02:04 Discharge - Discharge Information Problems reviewed: Yes Clinical Impression/Diagnosis: Right low back pain Qualifiers: Chronicity: acute Sciatica presence: without sciatica Qualified Code(s): M54.5 - Low back pain Condition: Good Disposition: HOME - Admission No - Additional Discharge Information Prescriptions: Diclofenac Sodium [Diclofono] 2.5 gm TP BID PRN #1 gel.packet PRN Reason: Back Pain Methocarbamol [Robaxin -] 500 mg PO BID #14 tablet Prescription Drug Monitoring Program (I-STOP) results: I-STOP reviewed and no issues identified - Follow up/Referral - Patient Discharge Instructions Patient Printed Discharge Instructions: DI for Low Back Pain, Support Garment May Reduce Back Pain Discomfort During , Methocarbamol, Diclofenac Additional Instructions: You were seen today for right lower back pain. This is likely from a muscle strain. You need to rest the back. Do not lift anything heavy for the next few days. Read the attached instructions sheets. You can take over the counter Tylenol or Advil as needed for pain. Take as directed on the package insert. Do not exceed the recommended dosage. I have sent two prescriptions to your pharmacy. The first is for Diclofenac and the second is for Robaxin. Take as directed on the package insert. Do not exceed the recommended dosage. Read the attached instruction sheets. Follow up with your primary care doctor in the next week or as needed. A copy of todays results are attached to this packet. Take it to the appointment so your doctor can review them. Go to the nearest emergency department if your condition worsens or you feel like you need additional emergency evaluation. Print Language: CZECH - Post Discharge Activity Work/Back to School Note: Back to Work
[2019-11-27] MEDS ORDERED: LIDOCAINE 5% TOPICAL PATCH ONE (01:36)
[2019-11-27 01:57] LABS: URINE APPEARANCE CLEAR; URINE BILIRUBIN NEGATIVE (NEGATIVE); URINE COLOR YELLOW; URINE GLUCOSE (UA) NEGATIVE (NEGATIVE); URINE KETONE NEGATIVE (NEGATIVE); URINE LEUK ESTERASE NEGATIVE (NEGATIVE); URINE NITRITE NEGATIVE (NEGATIVE); URINE PROTEIN TRACE (NEGATIVE)
[2019-11-27 02:26] LABS: BASO % 0.4 % (0-2.0); EOS % 2.5 % (0-4.5); HEMATOCRIT 36.1 % (32.4-45.2); HEMOGLOBIN 12.4 GM/dL (10.7-15.3); MCH 28.8 pg (25.7-33.7); MCHC 34.4 g/dl (32.0-36.0); MEAN CELL VOLUME 83.9 fl (80-96); MONO % 9.1 % (3.8-10.2); PLATELET COUNT 262 K/MM3 (134-434); RBC 4.31 M/mm3 (3.60-5.2); RDW 13.7 % (11.6-15.6); WHITE BLOOD COUNT 8.2 K/mm3 (4.0-10.0)
[2019-11-27 02:34] LABS: BLOOD UREA NITROGEN 7.5 mg/dL (7-18); CREATININE 0.8 mg/dL (0.55-1.3); POTASSIUM 4.2 mmol/L (3.5-5.1)
[2019-11-27] MEDS ORDERED: LIDOCAINE PATCH REMOVAL MC SCH (22:00)
== END 2019-11-27 04:45 | disposition home or self-care (01) ==
LOC: JER 23:24
DX: M54.5 Low back pain (principal); E11.9 Type 2 diabetes mellitus without complications; J45.909 Unspecified asthma, uncomplicated
CPT/HCPCS: 36415; 72070-TC-FY; 80048; 81003; 84703; 85025; 87086; 99282-25

== ENCOUNTER 2019-12-10 16:30 | Emergency (ER) | payer OTHER ==
[2019-12-10 16:38] VITALS: BP 116/83; PULSE 98; TEMP 98.3; BMI 30.9
--- NOTE | 2019-12-10 17:05 | PDOC ---
History of Present Illness - General History Source: Patient Exam Limitations: No Limitations <Rekha Castrejon - Last Filed: 12/10/19 20:13> <Marylin Vogel - Last Filed: 12/11/19 12:03> - General Chief Complaint: Pain, Acute Stated Complaint: ABD PAIN Time Seen by Provider: 12/10/19 16:45 Past History - Past Medical History Asthma: Yes Cancer: No Cardiac Disorders: No COPD: No Diabetes: Yes HTN: No Seizures: No Thyroid Disease: No - Surgical History Cholecystectomy: Yes - Immunization History Immunization Up to Date: Yes - Psycho Social/Smoking Cessation Hx Smoking History: Never smoked Have you smoked in the past 12 months: No Number of Cigarettes Smoked Daily: 0 Cigars Per Day: 0 Information on smoking cessation initiated: No Hx Alcohol Use: No Drug/Substance Use Hx: No Substance Use Type: None Hx Substance Use Treatment: No <Rekha Castrejon - Last Filed: 12/10/19 20:13> <Marylin Vogel - Last Filed: 12/11/19 12:03> - Past Medical History Allergies/Adverse Reactions: Allergies Allergy/AdvReac Type Severity Reaction Status Date / Time No Known Allergies Allergy Verified 12/10/19 17:02 Home Medications: Ambulatory Orders NK [No Known Home Medication] 12/10/19 *Physical Exam - Vital Signs Last Vital Signs Temp Pulse Resp BP Pulse Ox 98.3 F 98 H 18 116/83 99 12/10/19 16:35 12/10/19 16:35 12/10/19 16:35 12/10/19 16:35 12/10/19 16:35 - Physical Exam Respiratory/Chest: positive: Lungs Clear, Normal Breath Sounds. negative: Respiratory Distress Cardiovascular: positive: Regular Rhythm, Regular Rate, S1, S2. negative: Murmur Gastrointestinal/Abdominal: positive: Normal Bowel Sounds, Soft. negative: Tender, Distended, Guarding, Rebound Musculoskeletal: negative: CVA Tenderness, CVA Tenderness (R), CVA Tenderness (L ), Muscle Spasm, Vertebral Tenderness Integumentary: positive: Normal Color Neurologic: positive: Alert <Rekha Castrejon - Last Filed: 12/10/19 20:13> - Vital Signs Last Vital Signs Temp Pulse Resp BP Pulse Ox 98.3 F 98 H 18 116/83 99 12/10/19 16:35 12/10/19 16:35 12/10/19 16:35 12/10/19 16:35 12/10/19 16:35 <Marylin Vogel - Last Filed: 12/11/19 12:03> ED Treatment Course - Medications Given in the ED: ED Medications Discontinued Medications Generic Name Dose Route Start Last Admin Trade Name Eric PRN Reason Stop Dose Admin Ketorolac Tromethamine 30 mg 12/10/19 18:11 12/10/19 18:43 Toradol Injection - IM 12/10/19 18:12 30 mg ONCE ONE Administration <Marylin Vogel - Last Filed: 12/11/19 12:03> Medical Decision Making - Medical Decision Making 34 y/o F with no sig pmh presents with R flank pain x 1 month, worse with movement of her body. Was seen 11/27 for similar sxs, got lidocaine patch, diclofenac topical gel, and Robaxin but states pain is not improving. Also had thoracic spine xray done which was negative. Saw her PCP 12/06 who advised her to come to ED for an ultrasound for further evaluation; patient came to ED but could not stay so left without getting evaluated. Has also tried her 's Flexeril and Advil but states pain is still there. 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 Denies trauma. Denies fever, URI sxs, sob, cp, abd pain, n/v/d, urinary sxs. Hx of cholecystectomy (around 9 years ago) and . Pain sounds MSK in nature Consider kidney stone though patient has had pain for x1 month Given pain along R flank region, though, will get spiral CT A/P to further assess cause of sxs Patient currently appears comfortable Plan: UA, UCG, spiral CT 12/10/19 17:01 CT A/P results: Mild atelectasis and scarring in lung bases. No pleural effusions. Cholecystectomy. *1.4 cm cystic lesion and adjacent edema involving the posterior aspect of the right hepatic lobe. Cannot exclude infection and a small abscess. Adjacent surgical clip which may be a displaced cholecystectomy clip. Correlate clinically. The pancreas, adrenal glands, and spleen are grossly unremarkable. No renal or urinary calculi. No AAA. No evidence for acute diverticulitis, appendicitis, small bowel obstruction, free pelvic fluid, or free air Will send for RUQ sono to further evaluate this 12/10/19 18:51 No cyst/lesion visualized on US Given patient copy of reports Advised f/u with PCP 12/10/19 20:14 <Rekha Castrejon - Last Filed: 12/10/19 20:13> - Medical Decision Making I reviewed the case with the mid-level practitioner and agree with the mid- level practitioner's assessment, diagnosis and disposition. <Marylin Vogel - Last Filed: 12/11/19 12:03> Discharge - Discharge Information Problems reviewed: Yes - Admission No - Additional Discharge Information Prescription Drug Monitoring Program (I-STOP) results: I-STOP not reviewed <Rekha Castrejon - Last Filed: 12/10/19 20:13> <Marylin Vogel - Last Filed: 12/11/19 12:03> - Discharge Information Clinical Impression/Diagnosis: Right flank pain Condition: Stable Disposition: HOME - Patient Discharge Instructions Patient Printed Discharge Instructions: DI for Flank Pain Additional Instructions: Thank you for choosing [facility]. It was a pleasure taking care of you. Your urine was normal Your imaging showed cyst along right liver. Likely your pain is muscular in nature Take Motrin 600 mg eery 6 hours as needed for pain. Take with food. Follow-up with your doctor for further evaluation Return to the Emergency Department if your symptoms worsen or persist or have other concerning symptoms.
[2019-12-10 17:22] LABS: URINE APPEARANCE Clear; URINE BILIRUBIN Negative (NEGATIVE); URINE COLOR Yellow; URINE GLUCOSE (UA) Negative (NEGATIVE); URINE KETONE Negative (NEGATIVE); URINE LEUK ESTERASE Negative (NEGATIVE); URINE NITRITE Negative (NEGATIVE); URINE PROTEIN Negative (NEGATIVE); URINE UROBILINOGEN 0.2 mg/dL (0.2-1.0)
[2019-12-10] MEDS ORDERED: KETOROLAC TROMETHAMINE 30 MG/1 ML VIAL IM ONE (18:11)
[2019-12-10] MEDS ORDERED: KETOROLAC TROMETHAMINE 30 MG/1 ML VIAL ONE (18:38)
== END 2019-12-10 20:19 | disposition home or self-care (01) ==
LOC: JER 16:30
PROC: 3E0233Z Introduction of Anti-inflammatory into Muscle, Percutaneous Approach (ICD-10-PCS; principal; 2019-12-10)
DX: R10.31 Right lower quadrant pain (principal); Z90.49 Acquired absence of other specified parts of digestive tract; J45.909 Unspecified asthma, uncomplicated; E11.9 Type 2 diabetes mellitus without complications
CPT/HCPCS: 74176-TC; 76705-TC; 81003; 84703; 96372; 99282-25

== ENCOUNTER 2023-05-11 19:08 | Emergency (ER) | payer OTHER ==
[2023-05-11 19:15] VITALS: TEMP 99.4; BMI 31.1
[2023-05-11] MEDS ORDERED: ONDANSETRON 4 MG/2 ML VIAL IVPUSH ONE (19:24)
[2023-05-11] MEDS ORDERED: ACETAMINOPHEN 1000 MG/100 ML BAG IVPB ONE (19:24)
[2023-05-11] MEDS ORDERED: SODIUM CHLORIDE 0.9% 500 ML INFUS.BAG IV ONE (19:24)
[2023-05-11] MEDS ORDERED: ONDANSETRON 4 MG/2 ML VIAL ONE (20:04)
[2023-05-11] MEDS ORDERED: ACETAMINOPHEN INJECTION 100 ML IVPB ONE (20:04)
[2023-05-11 20:31] LABS: HEMATOCRIT 28.1 % (32.4-45.2); MEAN CELL VOLUME 61.1 fl (80-96); WHITE BLOOD COUNT 14.9 K/mm3 (4.0-10.0)
[2023-05-11 20:32] LABS: MEAN PLT VOLUME 8.3 fl (7.5-11.1); PLATELET COUNT 345 10^3/uL (134-434); RDW 20.9 % (11.6-15.6)
[2023-05-11 20:37] LABS: MCH 19.5 pg (25.7-33.7)
[2023-05-11 20:40] VITALS: RESP 18
[2023-05-11 21:05] LABS: EPI CELLS 7 /uL (0-25.1); HYALINE CASTS 0 /uL (0-3.1); PH,URINE 5.5 (5.0-8.0); URINE APPEARANCE Error; URINE BACTERIA 108 /uL (0-1359); URINE BILIRUBIN NEGATIVE (NEGATIVE); URINE COLOR YELLOW; URINE GLUCOSE (UA) NEGATIVE (NEGATIVE); URINE KETONE NEGATIVE (NEGATIVE); URINE LEUK ESTERASE NEGATIVE (NEGATIVE); URINE NITRITE NEGATIVE (NEGATIVE); URINE PROTEIN 1+ (NEGATIVE); URINE RBC 95 /uL (0-23.9); URINE UROBILINOGEN 0.2 mg/dL (0.2-1.0); URINE WBC 5 /uL (0-25.8)
[2023-05-11 21:22] LABS: MACROCYTOSIS 0; TARGET CELLS 1+; TEAR DROP CELLS 2+
[2023-05-11 21:23] LABS: ANISOCYTOSIS 2+
[2023-05-11 21:30] LABS: POTASSIUM 4.2 mmol/L (3.5-5.1)
[2023-05-11 21:32] LABS: ALBUMIN 3.3 g/dl (3.4-5.0); BLOOD UREA NITROGEN 13.7 mg/dL (7-18); CALCIUM 8.5 mg/dL (8.5-10.1)
[2023-05-11 21:35] LABS: CREATININE 0.8 mg/dL (0.55-1.3)
[2023-05-11 21:37] LABS: BILIRUBIN,TOTAL 1.1 mg/dL (0.2-1); TOT PROT 8.2 g/dl (6.4-8.2)
[2023-05-11] MEDS ORDERED: ONDANSETRON 4 MG TABLET PO ONE (22:11)
[2023-05-11] MEDS ORDERED: ONDANSETRON *ODT* 4 MG TABLET ONE (22:11)
== END 2023-05-11 22:20 | disposition home or self-care (01) ==
LOC: JER 19:08
PROC: 3E033NZ Introduction of Analgesics, Hypnotics, Sedatives into Peripheral Vein, Percutaneous Approach (ICD-10-PCS; principal; 2023-05-11)
PROC: 3E033GC Introduction of Other Therapeutic Substance into Peripheral Vein, Percutaneous Approach (ICD-10-PCS; 2023-05-11)
DX: R11.2 Nausea with vomiting, unspecified (principal); R10.33 Periumbilical pain; K52.9 Noninfective gastroenteritis and colitis, unspecified
CPT/HCPCS: 36415; 80053; 81003; 84703; 85025; 87086; 99284-25

== ENCOUNTER 2024-05-10 04:10 | Day surgery (SDC) | payer OTHER ==
[2024-05-09 14:20] VITALS: BMI 32.9
[2024-05-10] MEDS ORDERED: MIDAZOLAM HCL 2 MG/2 ML SINGLE DOSE VIAL ONE ×2 (10:56→11:49)
[2024-05-10] MEDS: ceFAZolin SODIUM 1 GM VIAL IVPB ONE (11:30)
[2024-05-10] MEDS ORDERED: ceFAZolin SODIUM 1 GM VIAL ONE (11:30)
[2024-05-10] MEDS: IOHEXOL 180 MG/1 ML ML IJ ONE (11:45)
[2024-05-10] MEDS ORDERED: ELECTROLYTE-148 SOLN 1,000 ML IV SCH (12:15)
[2024-05-10 12:29] VITALS: RESP 20
[2024-05-10 13:36] VITALS: BP 166/82; PULSE 64; TEMP 97.5
== END 2024-05-10 13:20 | disposition home or self-care (01) ==
LOC: JASU-SURG 04:10
PROVIDERS: ATTEND Urology
PROC: 0TF6XZZ Fragmentation in Right Ureter, External Approach (ICD-10-PCS; principal; 2024-05-10 10:30)
DX: N20.1 Calculus of ureter (principal)

== ENCOUNTER 2024-12-12 14:05 | Emergency (ER) | payer OTHER ==
[2024-12-12 14:53] VITALS: BP 136/80; PULSE 86; RESP 17; TEMP 98.6; BMI 34.0
== END 2024-12-12 16:03 | disposition home or self-care (01) ==
LOC: JERFT 14:05
DX: Z03.823 Encounter for observation for suspected inserted (injected) foreign body ruled out (principal)
CPT/HCPCS: 99283-25

== ENCOUNTER 2025-04-04 20:57 | Emergency (ER) | payer OTHER ==
[2025-04-04 21:15] VITALS: BP 146/103; PULSE 82; RESP 20; TEMP 98.4; BMI 34.0
[2025-04-04] MEDS ORDERED: KETOROLAC TROMETHAMINE 30 MG/1 ML VIAL ONE ×2 (21:58→22:02)
[2025-04-04] MEDS ORDERED: METHOCARBAMOL 500 MG TABLET ONE (21:58)
[2025-04-04] MEDS ORDERED: LIDOCAINE 5% TOPICAL PATCH ONE (21:58)
[2025-04-04] MEDS: LIDOCAINE 5% TOPICAL PATCH TP ONE (22:15)
[2025-04-04] MEDS: METHOCARBAMOL 500 MG TABLET PO ONE (22:15)
[2025-04-04] MEDS: KETOROLAC TROMETHAMINE 30 MG/1 ML VIAL IM ONE (22:15)
== END 2025-04-04 22:55 | disposition home or self-care (01) ==
LOC: JER 20:57
PROC: 3E0233Z Introduction of Anti-inflammatory into Muscle, Percutaneous Approach (ICD-10-PCS; principal; 2025-04-04)
DX: M54.50 Low back pain, unspecified (principal); M54.6 Pain in thoracic spine; R10.9 Unspecified abdominal pain; X50.0XXA Overexertion from strenuous movement or load, initial encounter; Y99.0 Civilian activity done for income or pay
CPT/HCPCS: 72100-TC-FY; 99284-25

== ENCOUNTER 2025-05-03 09:51 | Emergency (ER) | payer OTHER ==
[2025-05-03 09:56] VITALS: BP 127/89; PULSE 89; RESP 20; TEMP 98.1; BMI 32.9
[2025-05-03] MEDS ORDERED: KETOROLAC TROMETHAMINE 30 MG/1 ML VIAL IM ONE (10:32)
[2025-05-03] MEDS ORDERED: KETOROLAC TROMETHAMINE 30 MG/1 ML VIAL ONE (10:38)
[2025-05-03] MEDS ORDERED: LIDOCAINE 4% PATCH TP ONE ×2 (10:38→10:55)
[2025-05-03] MEDS: LIDOCAINE 4% PATCH TP ONE (10:57)
[2025-05-03] MEDS ORDERED: LIDOCAINE PATCH REMOVAL MC ONE (22:00)
== END 2025-05-03 12:20 | disposition home or self-care (01) ==
LOC: JERFT 09:51
DX: M79.602 Pain in left arm (principal); M25.561 Pain in right knee; M25.562 Pain in left knee; M54.50 Low back pain, unspecified; W01.0XXA Fall on same level from slipping, tripping and stumbling without subsequent striking against object, initial encounter
CPT/HCPCS: 73560-TC-LT-FY; 73562-TC-RT-FY; 84703; 99284-25